=== PATIENT | male | born 1960 | race Caucasian/White ===

== ENCOUNTER 2022-02-27 12:12 | Outpatient (CLI) | payer BC ==
[2022-02-27 14:05] LABS: Hemoglobin 16.1 g/dL (13.5-17.5); Mean Corpuscular HGB CONC 33.3 g/dL (32.0-36.0); Mean Corpuscular Hemoglobin 31.9 pg (27.0-33.0); Mean Corpuscular Volume 95.6 fl (81.2-95.1); Mean Platelet Volume 10.1 fl (7.4-10.4); Platelet Count 274 10x3/uL (150-450); RBC Distribution Width 13.3 % (11.5-14.5); Red Blood Cell (RBC) Count 5.05 10x6/uL (4.32-5.72); White Blood Cell (WBC) Count 10.3 10x3/uL (3.5-10.5)
[2022-02-27 14:06] LABS: Bilirubin Neg (Negative); Blood, Urine 10 (Negative); Clarity Clear (Clear); Glucose, Urine (Dipstick) Normal (Negative); Ketone, Urine Negative (Negative); Leukocyte Negative (Negative); Nitrite Negative (Negative); Protein, Urine (Dipstick) 15 mg/dl (Neg-Trace); Specific Gravity, Urine 1.025 (1.002-1.036)
[2022-02-27 14:14] LABS: RBC/HPF 0-3 HPF (0-3)
[2022-02-27 14:26] LABS: Anion Gap 16 mmol/L (10-20); BUN (Urea Nitrogen) 20 mg/dL (8.4-25.7); Calc. Creatinine Clearance 0 mL/min (70-130); Calcium 9.5 mg/dL (7.8-10.44); Carbon Dioxide 29 mmol/L (22-29); Chloride 101 mmol/L (98-107); Estimated GFR 75; Glucose 77 mg/dL (70-105); Potassium 4.6 mmol/L (3.5-5.1); Sodium 141 mmol/L (136-145)
== END 2022-02-27 12:13 | disposition home or self-care (01) ==
LOC: LABBT 12:12
PROVIDERS: ATTEND Urology
DX: Z01.818 Encounter for other preprocedural examination (principal); N40.0 Benign prostatic hyperplasia without lower urinary tract symptoms; N50.89 Other specified disorders of the male genital organs; Z20.822 Contact with and (suspected) exposure to COVID-19
CPT/HCPCS: 80048; 81001; 85027; 87086; 87811; 93005; 93010

== ENCOUNTER 2022-03-04 09:17 | Day surgery (SDC) | payer BC ==
[2022-03-03 10:44] VITALS: BMI 34.8
[2022-03-04] MEDS ORDERED: Levofloxacin 500 mg/D5W 100 ml Premix Bag ONE (12:55)
[2022-03-04] MEDS ORDERED: Fentanyl 100 MCG/2 ML VIAL ONE (12:55)
[2022-03-04] MEDS ORDERED: Ondansetron PF 4 MG/2 ML Vial ONE (13:08)
[2022-03-04] MEDS ORDERED: Phenylephrine 10 MG/ML VIAL ONE (13:08)
[2022-03-04] MEDS ORDERED: ePHEDrine 50 MG/ML VIAL ONE (13:08)
[2022-03-04] MEDS ORDERED: Dexamethasone 20 MG/5 ML VIAL ONE (13:08)
[2022-03-04] MEDS ORDERED: PROPOFOL 200 MG/20 ML VIAL ONE (13:08)
[2022-03-04] MEDS ORDERED: Glycopyrrolate 0.2 MG/ML 5 ML SYRINGE ONE (13:08)
[2022-03-04] MEDS ORDERED: Lidocaine 1% PF 5 ML VIAL ONE (13:08)
[2022-03-04] MEDS ORDERED: Oxybutynin 5 MG TAB ONE (14:08)
[2022-03-04] MEDS ORDERED: Phenazopyridine HCl 100 MG TAB ONE (14:08)
== END 2022-03-04 16:00 | disposition home or self-care (01) ==
LOC: SDC 09:17
PROVIDERS: ATTEND Urology
PROC: 0VT08ZZ Resection of Prostate, Via Natural or Artificial Opening Endoscopic (ICD-10-PCS; principal; 2022-03-04)
PROC: 0H5AXZD Destruction of Inguinal Skin, Multiple, External Approach (ICD-10-PCS; principal; 2022-03-04)
DX: N40.1 Benign prostatic hyperplasia with lower urinary tract symptoms (principal); N39.41 Urge incontinence; R39.12 Poor urinary stream; R39.16 Straining to void; L91.8 Other hypertrophic disorders of the skin; N32.89 Other specified disorders of bladder; N32.3 Diverticulum of bladder; N13.8 Other obstructive and reflux uropathy; E78.00 Pure hypercholesterolemia, unspecified; Z79.899 Other long term (current) drug therapy; Z91.013 Allergy to seafood
CPT/HCPCS: 88305; J1100; J1956; J2370; J2405; J2704; J3010; J3490

== ENCOUNTER 2022-03-21 05:12 | Observation (INO) | payer BC ==
[2022-03-21] MEDS ORDERED: Ondansetron PF 4 MG/2 ML Vial ONE (07:32)
[2022-03-21] MEDS ORDERED: Morphine 4 MG/ML VIAL ONE (07:32)
[2022-03-21] MEDS ORDERED: Dextrose 5 % And 0.9 % NaCl 1,000 ML IV SCH (10:00)
[2022-03-21 10:31] VITALS: BMI 35.2
[2022-03-21] MEDS ORDERED: Acetaminophen 500 MG TAB PO PRN (10:55)
[2022-03-21] MEDS ORDERED: diphenhydrAMINE 50 MG/ML VIAL IVP PRN (10:55)
[2022-03-21] MEDS ORDERED: hydrALAZINE 20 MG/ML VIAL SLOW IVP PRN (10:55)
[2022-03-21] MEDS ORDERED: Ketorolac Tromethamine 30 MG/ML VIAL IVP PRN (10:55)
[2022-03-21] MEDS ORDERED: Zolpidem Tartrate 5 MG TAB PO PRN (10:55)
[2022-03-21] MEDS ORDERED: Ondansetron PF 4 MG/2 ML Vial IVP PRN (10:55)
[2022-03-21] MEDS ORDERED: Oxybutynin 5 MG TAB PO PRN (10:55)
[2022-03-21] MEDS ORDERED: cefTRIAXone\\ROCEPHIN 1 GM in Sodium Chloride 0.9% 100 ML IVPB SCH (11:00)
[2022-03-21] MEDS: Hyoscyamine Sulfate SL 0.125 mg Tablet SL SCH ×2 (11:35→17:02)
[2022-03-21] MEDS: Sodium Chloride 0.9% 1,000 ML IV SCH (11:37)
[2022-03-21] MEDS ORDERED: Famotidine/PF 20 mg/2ml Vial SLOW IVP SCH (21:00)
[2022-03-22] MEDS: Hyoscyamine Sulfate SL 0.125 mg Tablet SL SCH ×2 (00:15→05:39)
[2022-03-22] MEDS: Sodium Chloride 0.9% 1,000 ML IV SCH ×2 (00:33→05:41)
[2022-03-22 05:15] LABS: #Eosinphils 0.2 thou/uL (0.0-0.7); #Lymphocytes 1.7 thou/uL (1.20-3.40); #Monocytes 0.9 thou/uL (0.11-0.59); #Neutrophils 8.6 thou/uL (1.40-6.50); %Basophils 0.1 % (0.0-1.0); %Eosinophils 1.8 % (0.0-10.0); %Lymphocytes 14.9 % (21.0-51.0); %Monocytes 7.6 % (0.0-10.0); %Neutrophils 75.6 % (42.0-75.0); Hemoglobin 12.4 g/dL (14.0-18.0); Mean Corpuscular HGB CONC 34.3 g/dL (32.0-36.0); Mean Corpuscular Hemoglobin 34.1 pg (27.0-31.0); Mean Corpuscular Volume 99.3 fL (78.0-98.0); Mean Platelet Volume 7.3 fL (7.4-10.4); Platelet Count 265 thou/uL (130-400); RBC Distribution Width 12.2 % (11.5-14.5); Red Blood Cell (RBC) Count 3.64 mill/uL (4.70-6.10); White Blood Cell (WBC) Count 11.4 thou/uL (4.8-10.8)
[2022-03-22 08:27] VITALS: BP 144/90; TEMP 97.8
== END 2022-03-22 08:57 | disposition home or self-care (01) ==
LOC: ERS 05:12 → SURG A 09:27
PROVIDERS: ADMIT Urology; ATTEND Urology
DX: R33.9 Retention of urine, unspecified (principal); R31.9 Hematuria, unspecified; N40.0 Benign prostatic hyperplasia without lower urinary tract symptoms; E78.5 Hyperlipidemia, unspecified; E66.9 Obesity, unspecified; Z68.35 Body mass index [BMI] 35.0-35.9, adult; Z79.899 Other long term (current) drug therapy; Z91.013 Allergy to seafood; Z98.890 Other specified postprocedural states
CPT/HCPCS: 36415; 51702; 85025; 96374; 96375; G0378; J0696; J2270; J2405; J3490; J7042; J7050; S0028